=== PATIENT | male | born 1985 | race African-American/Black ===

== ENCOUNTER → 2022-09-27 | Outpatient (CLI) | payer OTHER | LOC: MHCPAIN 10:09 | DX: M54.50 Low back pain, unspecified (principal); M25.60 Stiffness of unspecified joint, not elsewhere classified; M53.3 Sacrococcygeal disorders, not elsewhere classified | CPT/HCPCS: G0463 ==

== ENCOUNTER → 2022-12-20 | Outpatient (CLI) | payer OTHER | LOC: MHCPAIN 10:11 | DX: M53.3 Sacrococcygeal disorders, not elsewhere classified (principal) | CPT/HCPCS: J3301; Q9967 ==

== ENCOUNTER → 2023-01-21 | Outpatient (CLI) | payer OTHER | LOC: MHCPAIN 10:54 | DX: M54.32 Sciatica, left side (principal); M79.18 Myalgia, other site; M54.31 Sciatica, right side | CPT/HCPCS: J3301 ==

== ENCOUNTER → 2023-02-01 | Outpatient (CLI) | payer OTHER | LOC: MHCPAIN 11:06 | DX: M54.31 Sciatica, right side (principal); M79.18 Myalgia, other site | CPT/HCPCS: J3301 ==

== ENCOUNTER → 2023-08-09 | Outpatient (CLI) | payer OTHER | LOC: MHCPAIN 11:09 | DX: M54.50 Low back pain, unspecified (principal); M54.32 Sciatica, left side; M54.31 Sciatica, right side; M79.18 Myalgia, other site | CPT/HCPCS: G0463 ==